=== PATIENT | male | born 1980 | race African-American/Black ===

== ENCOUNTER 2017-08-07 12:23 | Emergency (ER) | payer MEDICAID, SELFPAY ==
[2017-08-07 12:24] VITALS: BP 141/96; PULSE 79; RESP 12; TEMP 36.5; BMI 36.3
--- NOTE | 2017-08-07 12:56 | ED.DCSUM_ITS ---
- ER Visit Summary Date of Service: 08/07/17 Chief Complaint: Headache History of Present Illness: The patient is a 36 M who presents with a headache. He has had this for the past 10 days. He describes throbbing on the right side of his head. Nothing makes it better or worse. He does have associated nausea. He does admit to photophobia. Patient has a history of an arachnoid cyst and has had chronic headaches secondary to this. He denies any fevers. Physical Examination: Vital signs reviewed. HEENT exam unremarkable. Heart is regular rate and rhythm without murmurs. Lungs are clear to auscultation. Abdomen is soft and nontender. Extremities reveal no edema. Skin exam normal. Neurologic exam normal. Test Results: None indicated Emergency Department Course and Treatment: Patient was treated with Compazine, Benadryl and IV fluids. He feels much better. He will be discharged use his home medications. He will follow-up with his PCP. Treatment Plan: [] Disposition: Discharge Impression: Headache This note was generated with [employer] dictation software. It may contain incorrect words, spelling, and punctuation that were not noted in review of the chart prior to signing ED Disposition - Plan for ED Patient: Chief Complaint: Headache Referrals: [facility] Doctor,Out of [Primary Care Provider] -
[2017-08-07] MEDS: DiphenhydrAMINE 50 MG/ML Syringe 25 MG IV (13:23)
[2017-08-07] MEDS: 0.9% Normal Saline 1,000 ML 999 ML IV (13:23)
[2017-08-07] MEDS: proCHLORPERazine 10 MG/2 ML Vial IV (13:23)
--- NOTE | 2017-08-07 13:46 | DCINST.ED_ITS ---
ED Disposition - Plan for ED Patient: Disposition: Home or Assisted Living Chief Complaint: Headache Instructions: ED Cephalgia Unspecified Referrals: [facility] Doctor,Out of [Primary Care Provider] -
[2017-08-07 14:04] VITALS: BP 136/87; PULSE 79; RESP 15
== END 2017-08-07 14:05 | disposition home or self-care (01) ==
PROVIDERS: Emergency Provider Emergency Medicine
DX: R51 Headache (principal); G93.0 Cerebral cysts; Z79.899 Other long term (current) drug therapy
CPT/HCPCS: 96374; 96375; 99283; J7030; A4216